=== PATIENT | female | born 1955 | race Native Hawaiian/Other Pacific Islander ===

== ENCOUNTER 2021-01-30 08:54 | Outpatient (CLI) | payer OTHER ==
[2021-01-30 09:19] LABS: PLATELET COUNT 207 K/uL (152-353)
[2021-01-30 11:45] LABS: POTASSIUM 4.2 mmol/L (3.6-5.2)
== END 2021-01-30 19:19 | disposition home or self-care (01) ==
LOC: LABW 08:54
PROVIDERS: ATTEND Internal Medicine
DX: N18.32 Chronic kidney disease, stage 3b (principal); R53.83 Other fatigue
CPT/HCPCS: 36415; 80053; 81000; 82043; 82330; 82570; 82607; 82728; 82746; 83036; 83540; 83550; 83735; 83970; 84100; 84155; 84439; 84443; 85027; 85652; 86038

== ENCOUNTER 2021-06-25 09:34 | Outpatient (CLI) | payer OTHER ==
[2021-06-25 10:07] LABS: PLATELET COUNT 228 K/uL (152-353)
[2021-06-25 10:37] LABS: POTASSIUM 4.1 mmol/L (3.6-5.2)
== END 2021-06-25 23:00 | disposition home or self-care (01) ==
LOC: LABW 09:34
PROVIDERS: ATTEND Nurse Practitioner
DX: N18.32 Chronic kidney disease, stage 3b (principal); R53.83 Other fatigue; R79.89 Other specified abnormal findings of blood chemistry
CPT/HCPCS: 36415; 80053; 81000; 82043; 82330; 82570; 82607; 82728; 82746; 83036; 83540; 83550; 83735; 83970; 84155; 84439; 84443; 85027; 86038

== ENCOUNTER 2021-06-28 09:53 | Outpatient (CLI) | payer OTHER | END 2021-06-28 19:10 | disposition home or self-care (01) | LOC: LABW 09:53 → US 09:53 | PROVIDERS: ATTEND Internal Medicine | DX: N18.32 Chronic kidney disease, stage 3b (principal); R53.83 Other fatigue | CPT/HCPCS: 36415; 85652 ==

== ENCOUNTER 2021-12-25 08:23 | Outpatient (CLI) | payer OTHER ==
[2021-12-25 09:03] LABS: POTASSIUM 4.3 mmol/L (3.6-5.2)
[2021-12-25 09:42] LABS: PLATELET COUNT 193 K/uL (152-353)
== END 2021-12-25 20:51 | disposition home or self-care (01) ==
LOC: LABW 08:23
PROVIDERS: ATTEND Internal Medicine
DX: N18.32 Chronic kidney disease, stage 3b (principal); R73.03 Prediabetes; E55.9 Vitamin D deficiency, unspecified
CPT/HCPCS: 36415; 80053; 81000; 82043; 82306; 82330; 82570; 83036; 83735; 83970; 84100; 84155; 85027

== ENCOUNTER 2021-12-28 08:43 | Outpatient (CLI) | payer OTHER | END 2021-12-28 18:56 | disposition home or self-care (01) | LOC: US 08:43 | PROVIDERS: ATTEND Internal Medicine | DX: N18.32 Chronic kidney disease, stage 3b (principal) ==

== ENCOUNTER 2022-04-11 08:39 | Outpatient (CLI) | payer OTHER | END 2022-04-11 18:50 | disposition home or self-care (01) | LOC: RESP 08:39 | PROVIDERS: ATTEND Internal Medicine Cardiovascular Disease | DX: I10 Essential (primary) hypertension (principal) ==

== ENCOUNTER 2022-11-11 08:16 | Outpatient (CLI) | payer OTHER ==
[2022-11-11 09:28] LABS: POTASSIUM 3.9 mmol/L (3.6-5.2)
[2022-11-11 09:31] LABS: PLATELET COUNT 212 K/uL (152-353)
== END 2022-11-11 18:55 | disposition home or self-care (01) ==
LOC: LABW 08:16
PROVIDERS: ATTEND Internal Medicine
DX: N18.32 Chronic kidney disease, stage 3b (principal); R73.03 Prediabetes
CPT/HCPCS: 36415; 80053; 81002; 82043; 82306; 82330; 82570; 83036; 83735; 83970; 84100; 85027

== ENCOUNTER 2023-02-05 15:05 | Outpatient (CLI) | payer OTHER | END 2023-02-05 19:04 | disposition home or self-care (01) | LOC: MAMMO 15:05 | PROVIDERS: ATTEND Nurse Practitioner Family | DX: Z13.820 Encounter for screening for osteoporosis (principal); Z12.31 Encounter for screening mammogram for malignant neoplasm of breast; N95.8 Other specified menopausal and perimenopausal disorders ==